=== PATIENT | female | born 1945 | race Caucasian/White ===

== ENCOUNTER → 2017-07-26 | Day surgery (SDC) | payer MEDICARE ==
[2017-07-25 14:57] LABS: BASOPHILS % 0.2 % (0.0-1.0); EOSINOPHILS # (AUTO) 0.1 (0.0-0.4); EOSINOPHILS % 1.2 % (0.0-6.0); HEMOGLOBIN 11.6 g/dL (12.0-16.0); LYMPHOCYTES # (AUTO) 1.3 (1.0-3.2); LYMPHOCYTES % 22.7 % (18.0-39.1); MEAN CORPUSCULAR HEMOGLOBIN 32.1 pg (28-32); MEAN CORPUSCULAR HGB CONC 33.1 g/dL (31-35); MONOCYTES # (AUTO) 0.6 (0.2-0.8); NEUTROPHILS # (AUTO) 3.9 (2.1-6.9); NEUTROPHILS % 65.7 % (38.7-80.0); PLATELET COUNT 186 x10e3/uL (140-360); RED BLOOD COUNT 3.61 x10e6/uL (3.6-5.1); RED CELL DISTRIBUTION WIDTH 14.4 % (11.7-14.4)
[2017-07-25 15:13] LABS: ANION GAP 13.9 mmol/L (8-16); CALCIUM 9.5 mg/dL (8.4-10.2); CREATININE, SERUM 1.3 mg/dL (0.57-1.11)
[2017-07-25 15:15] LABS: POTASSIUM 2.9 mmol/L (3.5-5.1)
--- NOTE | 2017-07-25 15:59 | Diagnostic Imaging Report ---
PROCEDURE: X-RAY CHEST, TWO VIEWS COMPARISON: None. INDICATIONS: PREOPERATIVE CHEST XRAY FOR STENT REMOVAL FINDINGS: LUNGS: No evidence of mass or infiltrate. Pulmonary vascular markings are normal PLEURA: No effusions or pneumothorax. HEART \T\ MEDIASTINUM: The heart is normal in size. There is mild aortic ectasia. No hilar lymphadenopathy. BONES \T\ SOFT TISSUES: No acute fracture. There appears to be an old fracture deformity of the proximal right humerus. There are degenerative changes of the spine without compression deformity. Surgical clips in the upper abdomen are from undisclosed surgery. There is gaseous distention of the splenic flexure of the colon without dilatation. CONCLUSION: No acute thoracic abnormality. Dictated by: Janneth Reilly M.D. on 07/25/2017 at 15:59 Electronically approved by: Janneth Reilly M.D. on 07/25/2017 at 15:59
[~2017-07-26] MED LIST: ASPIR 8181 MG PO; ATENOLOL25 MG; ATENOLOL50 MG PO; BELLADONNA/OPIUM 60 MG SUPP PR ONE; CITRACAL + D E1 EACH PO; DEXAMETHASONE SOD PHOS INJ 4 MG/ML VIAL ONE; FENTANYL CITRATE/PF 100MCG/2 ML INJ ONE; FOLIC ACID0.4 MG PO; HYDROXYCHLOROQ200 MG PO; IOPAMIDOL 610MG/1ML 300 MG/ML VIAL IV ONE; LEVOFLOXACIN 500MG/D5W 100ML 100 ML IV ONE; LIDOCAINE HCL 2% LOCAL INJ 5 ML SDV VIAL INJ ONE; METHOTREXATE2.5 MG PO; ONDANSETRON HCL INJ 2 MG/ML VIAL ONE; PROPOFOL IV EMULSION 10 MG/ML 20 ML VIAL ONE; SEVOFLURANE INHAL SOLN 250 ML PEN BTL ONE; TRIAMTERENE-HCTZ1 EA PO; TYLENOL WITH C1 EACH PO; VESICARE5 MG PO; [UNRECOGNIZED DRUG - REMARK]
--- OUTSIDE RECORDS SUMMARY | 2017-07-26 07:43 | XMS REPORT ---
Author [facility] Address Unknown Phone Unavailable Care Team Providers Care Overlock Sleeve Setter Name Role Phone JESSICA CRANE Unavailable Unavailable Problems This patient has no known problems. Allergies, Adverse Reactions, Alerts This patient has no known allergies or adverse reactions. Medications This patient has no known medications. Results Test Description Test Time Test Comments Text Results Atomic Results Result Comments CHEST 2 VIEWS [place] [address] Patient Name: MULUGETA SHANKAR MR #: [id number] : 1945 Age/Sex: 72/F Req # : [id number] Adm Physician: Ordered by: JESSICA CRANE MD Report #: [id number] Location: OR Room/Bed: Procedure: [id number] DX/CHEST 2 VIEWS Exam Date: 07/25/17 Exam Time: 1450 REPORT STATUS: Signed PROCEDURE: X-RAY CHEST, TWO VIEWS COMPARISON: None. INDICATIONS: PREOPERATIVE CHEST XRAY FOR STENT REMOVAL FINDINGS: LUNGS: No evidence of mass or infiltrate. Pulmonary vascular markings are normal PLEURA: No effusions or pneumothorax. HEART T MEDIASTINUM: The heart is normal in size. There is mild aortic ectasia. No hilar lymphadenopathy. BONES T SOFT TISSUES: No acute fracture. There appears to be an old fracture deformity of the proximal right humerus. There are degenerative changes of the spine without compression deformity. Surgical clips in the upper abdomen are from undisclosed surgery. There is gaseous distention of the splenic flexure of the colon without dilatation. CONCLUSION: No acute thoracic abnormality. Dictated by: Roopa Reilly M.D. on 2017 at 15:59 Electronically approved by: Roopa Reilly M.D. on 2017 at 15:59 Dictated By: ROOPA REILLY MD [id number] Transcribed By : BABS on 07/25/17 [id number] COPY TO: JESSICA CRANE MD
--- NOTE | 2017-07-26 12:03 | Operative Report ---
DATE OF PROCEDURE: July 26, 2017 SERVICE: Urology. PREOPERATIVE DIAGNOSES 1. History of right ureteral stone. 2. Right ureteral stent. 3. Microhematuria. 4. Cystocele. 5. Rectocele. POSTOPERATIVE DIAGNOSIS: OPERATIONS PERFORMED 1. Cystoscopy and left retrograde pyelograms under fluoroscopic control. This is done with separate instruments for assessment of the microhematuria. 2. Removal of JJ stent from the right side. 3. Right retrograde pyelogram. 4. Right ureteroscopy. 5. Interpretation of x-ray. 6. Supervision of fluoroscopy. 7. Pelvic exam. REAL PROPERTY APPRAISER: None. CLINICAL INDICATION NOTE: A 72-year-old patient was brought for assessment of history of stone on the right side. Patient has a stent in placed. Procedure was discussed with the patient. Potential benefit and complication discussed, explained, and accepted. DESCRIPTION OF PROCEDURE AND FINDINGS: After propofol anesthesia was achieved, the patient was placed in lithotomy position, prepped and draped in sterile fashion. Urethra inspected is unremarkable. She does have a cystocele. JJ stent is protruding through the right ureteral orifice. Left retrograde pyelograms were done under fluoroscopic control. The upper tract and lower were unremarkable. Following this, the JJ stent was removed from the right side. Open-end catheter was inserted. Retrograde pyelogram did not demonstrate clearly any calcification. There is no significant hydro. Therefore, a guidewire was passed and a flexible ureteroscopy was done. Renal pelvis and the ureter were examined all the way down to the bladder. No stones were identified. Bladder was irrigated. The scope was removed. Pelvic exam was done under anesthesia for assessments of the cystocele and rectocele. No midline or adnexal masses were palpable. Patient tolerated the procedure well and was transferred in satisfactory condition to recovery room. Job#: [id number] VAS
== END | disposition home or self-care (01) ==
LOC: OR 07:41
PROVIDERS: ATTEND Urology
DX: Z09 Encounter for follow-up examination after completed treatment for conditions other than malignant neoplasm (principal); Z87.442 Personal history of urinary calculi; Z46.6 Encounter for fitting and adjustment of urinary device; N81.10 Cystocele, unspecified; N81.6 Rectocele; I10 Essential (primary) hypertension; M46.90 Unspecified inflammatory spondylopathy, site unspecified; F03.90 Unspecified dementia, unspecified severity, without behavioral disturbance, psychotic disturbance, mood disturbance, and anxiety; Z01.810 Encounter for preprocedural cardiovascular examination; Z01.812 Encounter for preprocedural laboratory examination; Z01.818 Encounter for other preprocedural examination
CPT/HCPCS: 36415 ×2; 52351; 71046; 74420; 80048; 84132; 85025; 93005; J1100; J1956; J2001; J2405; Q9967